=== PATIENT | male | born 1985 | race Caucasian/White ===

== ENCOUNTER 2018-02-10 21:58 | Emergency (ER) | payer OTHER ==
[~2018-02-10] VITALS: Ht 177.8 cm; Wt 83.9 kg
[~2018-02-10 21:58] MED LIST: ALBU90OI INH; AMOCLA500 PO; AMOX500 PO; AZIT250 PO; BENZ100A PO; Bactrim Ds Tab1 EACH PO; CEPH500 PO; CLON1 PO; CYCL10 PO; Ciloxan5 ML LEFTEYE; DOXY100 PO; ERYT.5TO LEFTEYE; FLUO.05TC TOP; GENT.3OPO TOP; HYDACE10B PO; HYDACE5 PO; HYDACE5325 PO; HYDHCL10 PO; IBUP200; IBUP800 PO; KETO10 PO; LIDO2TG30 TOP; METO50 PO; MUPI2TO TOP; NAPR550 PO; OXYACE5T PO; OXYACE7.5T PO; PENVK500 PO; PRED20 PO; PROM25 PO; RXCLIN PO; RXHYDACE PO; RXNAPNA550 PO; RXOXYACE PO; RXTRAM50 PO; SULTRIDS PO; SULTRISS PO; TOPI25; TOPI25 PO; TOPI50 PO; TRAM50 PO; ZOLM2.5; ZOLM2.5 PO
[2018-02-10] MEDS ORDERED: CLON1 (22:47)
[2018-02-10] MEDS ORDERED: METH5 (22:47)
[2018-02-10] MEDS ORDERED: RANI150 (22:48)
[2018-02-11] MEDS ORDERED: Vistaril25 MG PO (00:03)
== END 2018-02-11 00:10 | disposition home or self-care (01) ==
LOC: ER 21:58
DX: Z76.0 Encounter for issue of repeat prescription (principal); Z79.899 Other long term (current) drug therapy; F41.9 Anxiety disorder, unspecified; G43.909 Migraine, unspecified, not intractable, without status migrainosus; F17.200 Nicotine dependence, unspecified, uncomplicated; G47.00 Insomnia, unspecified

== ENCOUNTER → 2019-04-13 | Outpatient (CLI) | payer OTHER ==
[~2019-04-13] MED LIST changes: +CLON1; +DIVA250ER PO; +Keflex500 MG PO; +METH5; +RANI150; +Vistaril25 MG PO
== END | disposition home or self-care (01) ==
LOC: LAB SHORT 14:15 → LAB SRC 14:15
DX: L02.91 Cutaneous abscess, unspecified (principal); F19.10 Other psychoactive substance abuse, uncomplicated
CPT/HCPCS: 87070; 87077; 87147; 87186; 87205

== ENCOUNTER 2021-12-11 20:39 | Emergency (ER) | payer OTHER ==
[~2021-12-11] VITALS: Ht 177.8 cm; Wt 99.8 kg
[~2021-12-11 20:39] MED LIST changes: +NARCAN4 MG
[2021-12-11 22:22] LABS: BASOPHILS ABSOLUTE AUTO 0.05 K/mm3 (0.00-0.23); BASOPHILS PERCENT AUTO 1 % (0-2); EOSINOPHILS ABSOLUTE AUTO 0.31 K/mm3 (0.00-0.68); EOSINOPHILS PERCENT AUTO 4 % (0-6); Hematocrit 29.2 % (37.0-53.0); Hemoglobin 9.2 g/dL (13.5-17.5); IMMATURE GRAN ABSOLUTE AUTO 0.04 K/mm3 (0.00-0.10); IMMATURE GRAN PERCENT AUTO 1 % (0-1); LYMPHOCYTES ABSOLUTE AUTO 2.14 K/mm3 (0.84-5.20); LYMPHOCYTES PERCENT AUTO 28 % (21-46); MONOCYTES ABSOLUTE AUTO 0.83 K/mm3 (0.16-1.47); MONOCYTES PERCENT AUTO 11 % (4-13); Mean Corpuscular HGB 25.6 pg (26.0-34.0); Mean Corpuscular HGB Conc 31.5 g/dL (31.5-36.5); Mean Corpuscular Volume 81 fL (80-100); Mean Platelet Volume 10.7 fL (9.1-12.4); NEUTROPHILS ABSOLUTE AUTO 4.28 K/mm3 (1.96-9.15); NEUTROPHILS PERCENT AUTO 56 % (41-73); Platelet Count 348 K/mm3 (150-400); RDW Coefficient Variation 15.6 % (11.7-14.2); RDW Standard Deviation 46.7 fL (35.1-46.3); Red Blood Cell Count 3.59 M/mm3 (4.30-5.90); White Blood Cell Count 7.65 K/mm3 (4.00-11.30)
[2021-12-11 22:47] LABS: Alanine Aminotransfer (ALT/SGP 22 U/L (12-78); Albumin, Blood 2.3 g/dL (3.4-5.0); Albumin/Globulin Ratio 0.5 (0.8-1.8); Alk Phos 89 U/L (50-136); Anion Gap 1 mmol/L (6-16); Aspartate Aminotrans (AST/SGOT 9 U/L (12-37); Bilirubin, Total 0.2 mg/dL (0.1-1.0); Blood Urea Nitrogen 21 mg/dL (8-24); Bun/Creatinine Ratio 22.7 (12.0-20.0); CO2, Blood 31 mmol/L (21-32); Calcium, Blood 8.9 mg/dL (8.5-10.1); Chloride, Blood 105 mmol/L (98-108); Creatinine, Blood 0.93 mg/dL (0.60-1.20); Globulin, Blood 4.5 g/dL (2.2-4.0); Glomerular Filtration Rate >60 (60-); Glucose, Blood 102 mg/dL (70-99); Potassium, Blood 4.9 mmol/L (3.5-5.5); Sodium, Blood 137 mmol/L (136-145); Total Protein, Blood 6.8 g/dL (6.4-8.2)
[2021-12-11] MEDS ORDERED: CLIN300 PO (23:16)
== END 2021-12-11 23:41 | disposition home or self-care (01) ==
LOC: ER 20:39
PROVIDERS: Emergency Medicine
DX: L03.116 Cellulitis of left lower limb (principal); R60.0 Localized edema; Z79.899 Other long term (current) drug therapy; I10 Essential (primary) hypertension; F17.210 Nicotine dependence, cigarettes, uncomplicated
CPT/HCPCS: 36415; 71045; 80053; 84484; 85025; 85651; 86140; 93005; 93010; 93971; 96374; 99284-25

== ENCOUNTER 2023-01-20 00:41 | Inpatient (IN) | payer OTHER ==
[~2023-01-20] VITALS: Ht 177.8 cm; Wt 85.8 kg
[~2023-01-20 00:41] MED LIST changes: +CLIN300 PO
[2023-01-20] MEDS ORDERED: METH40 PO (01:08)
[2023-01-20 02:17] LABS: BASOPHILS ABSOLUTE AUTO 0.03 K/mm3 (0.00-0.23); BASOPHILS PERCENT AUTO 0 % (0-2); EOSINOPHILS PERCENT AUTO 0 % (0-6); Hematocrit 35.3 % (37.0-53.0); Hemoglobin 11.2 g/dL (13.5-17.5); IMMATURE GRAN ABSOLUTE AUTO 0.08 K/mm3 (0.00-0.10); IMMATURE GRAN PERCENT AUTO 1 % (0-1); LYMPHOCYTES ABSOLUTE AUTO 0.82 K/mm3 (0.84-5.20); LYMPHOCYTES PERCENT AUTO 5 % (21-46); MONOCYTES ABSOLUTE AUTO 0.23 K/mm3 (0.16-1.47); MONOCYTES PERCENT AUTO 1 % (4-13); Mean Corpuscular HGB 25.5 pg (26.0-34.0); Mean Corpuscular HGB Conc 31.7 g/dL (31.5-36.5); Mean Corpuscular Volume 80 fL (80-100); Mean Platelet Volume 10.8 fL (9.1-12.4); NEUTROPHILS ABSOLUTE AUTO 15.62 K/mm3 (1.96-9.15); NEUTROPHILS PERCENT AUTO 93 % (41-73); Platelet Count 265 K/mm3 (150-400); RDW Coefficient Variation 14.8 % (11.7-14.2); RDW Standard Deviation 43.3 fL (35.1-46.3); White Blood Cell Count 16.78 K/mm3 (4.00-11.30)
[2023-01-20 02:36] LABS: Albumin, Blood 3.3 g/dL (3.4-5.0); Albumin/Globulin Ratio 0.8 (0.8-1.8); Bilirubin, Total 0.6 mg/dL (0.1-1.0); Bun/Creatinine Ratio 16.5 (12.0-20.0); C-REACTIVE PROTEIN, EXT RANGE 13.8 mg/dL (0.000-0.300); Calcium, Blood 8.6 mg/dL (8.5-10.1); Creatinine, Blood 1.15 mg/dL (0.60-1.20); Globulin, Blood 4.3 g/dL (2.2-4.0); Potassium, Blood 3.6 mmol/L (3.5-5.5); Total Protein, Blood 7.6 g/dL (6.4-8.2)
--- NOTE | 2023-01-20 10:45 | NUR ---
CALLED [facility] [place] [phone] TORRES. VERIFIED PER RN KEVIN THAT PT DOES INDEED TAKE MATHADONE [address] UPDATE [address] TORRES
--- NOTE | 2023-01-20 18:38 | NUR ---
PT PLEASTNT TODAY. CELLULITIS HAS BEEN MARKED AND PIC TAKEN PLACED IN CHART. NO C/O PAIN. NO CHANGE IN COLOR WARMTH, OR SIZE OF CELLULITIS ON LEG NOTED TODAY. TAKES 135 MG METHADONE. I VERIFIED THIS DOSE WITH MOTHER THAT TAKES HIM TO CLINIC DAILY. ALSO VERIFIED WITH THE CLINIC. PT SOME SLEEPY, BUT YAZAN WELL TODAY. VSS. NO OTHER CONCERNS NOTED. BED IN LOW POSITION, CALL LITE IN REACH, CALLS APPROP
[2023-01-20 19:07] LABS: U Amphetamine Screen DETECTED; U Methamphetamine Screen DETECTED
[2023-01-20 19:08] LABS: U Barbituate Screen Not Detected; U Benzodiazapine Screen Not Detected; U Buprenorphine Screen Not Detected; U Cannabinoids Screen Not Detected; U Cocaine Screen Not Detected; U Methadone Screen DETECTED; U Opiates Screen DETECTED; U Oxycodone Screen Not Detected; U Phencyclidine Screen Not Detected; U Propoxyphene Screen Not Detected
--- NOTE | 2023-01-21 03:13 | NUR ---
SHIFT SUMMARY NOC PT A/O X 4. PLEASANT AND COOPERATIVE WITH CARE. PT HAS CELLULITIS IN RLE WHICH IS MARKED WITH BORDERS. SITE IS RED AND WARM TO TOUCH. PT TAKES 135MG OF METHADONE DAILY. PT HAS SLEPT ENTIRETY OF SHIFT. PT HAS LR INFUSING @ 100 MLS/HR. VSS. PT IS CURRENTLY RESTING WITH BED IN LOWEST POSITION, AND CALL LIGHT WITHIN REACH.
[2023-01-21 08:15] LABS: Bun/Creatinine Ratio 11.6 (12.0-20.0); Calcium, Blood 8.2 mg/dL (8.5-10.1); Creatinine, Blood 0.86 mg/dL (0.60-1.20); Magnesium, Blood 1.8 mg/dL (1.6-2.4); Potassium, Blood 3.8 mmol/L (3.5-5.5)
[2023-01-21 08:41] LABS: BASOPHILS ABSOLUTE AUTO 0.03 K/mm3 (0.00-0.23); BASOPHILS PERCENT AUTO 0 % (0-2); EOSINOPHILS ABSOLUTE AUTO 0.16 K/mm3 (0.00-0.68); EOSINOPHILS PERCENT AUTO 2 % (0-6); Hematocrit 31.5 % (37.0-53.0); Hemoglobin 10.1 g/dL (13.5-17.5); IMMATURE GRAN ABSOLUTE AUTO 0.05 K/mm3 (0.00-0.10); IMMATURE GRAN PERCENT AUTO 1 % (0-1); LYMPHOCYTES PERCENT AUTO 12 % (21-46); MONOCYTES ABSOLUTE AUTO 0.45 K/mm3 (0.16-1.47); MONOCYTES PERCENT AUTO 6 % (4-13); Mean Corpuscular HGB 25.9 pg (26.0-34.0); Mean Corpuscular HGB Conc 32.1 g/dL (31.5-36.5); Mean Corpuscular Volume 81 fL (80-100); Mean Platelet Volume 10.7 fL (9.1-12.4); NEUTROPHILS ABSOLUTE AUTO 6.23 K/mm3 (1.96-9.15); NEUTROPHILS PERCENT AUTO 80 % (41-73); Platelet Count 185 K/mm3 (150-400); RDW Coefficient Variation 15.1 % (11.7-14.2); RDW Standard Deviation 43.9 fL (35.1-46.3); White Blood Cell Count 7.82 K/mm3 (4.00-11.30)
[2023-01-21 21:23] LABS: Vancomycin, Trough 9.2 ug/mL (5.0-10.0)
--- NOTE | 2023-01-22 04:22 | NUR ---
HIFT SUMMARY NOC PT A/O X 4. PLEASANT AND COOPERATIVE WITH CARE. PT RLE IS STILL RED AND WARM TO TOUCH. VANCOMYCIN IS STILL BEING ADMINISTERED FOR INFECTION. PT SLEPT FOR MOST OF SHIFT WITH NO C/O OF PAIN. PT IS CURRENTLY RESTING WITH BED IN LOWEST POSITION, AND CALL LIGHT WITHIN REACH.
[2023-01-22 05:41] LABS: BASOPHILS ABSOLUTE AUTO 0.03 K/mm3 (0.00-0.23); BASOPHILS PERCENT AUTO 0 % (0-2); EOSINOPHILS ABSOLUTE AUTO 0.34 K/mm3 (0.00-0.68); EOSINOPHILS PERCENT AUTO 5 % (0-6); Hemoglobin 9.2 g/dL (13.5-17.5); IMMATURE GRAN ABSOLUTE AUTO 0.02 K/mm3 (0.00-0.10); IMMATURE GRAN PERCENT AUTO 0 % (0-1); LYMPHOCYTES PERCENT AUTO 22 % (21-46); MONOCYTES ABSOLUTE AUTO 0.58 K/mm3 (0.16-1.47); MONOCYTES PERCENT AUTO 9 % (4-13); Mean Corpuscular HGB 25.5 pg (26.0-34.0); Mean Corpuscular HGB Conc 31.7 g/dL (31.5-36.5); Mean Corpuscular Volume 80 fL (80-100); Mean Platelet Volume 11.2 fL (9.1-12.4); NEUTROPHILS ABSOLUTE AUTO 4.22 K/mm3 (1.96-9.15); NEUTROPHILS PERCENT AUTO 63 % (41-73); Platelet Count 223 K/mm3 (150-400); RDW Coefficient Variation 15.1 % (11.7-14.2); RDW Standard Deviation 44.9 fL (35.1-46.3); Red Blood Cell Count 3.61 M/mm3 (4.30-5.90); White Blood Cell Count 6.69 K/mm3 (4.00-11.30)
[2023-01-22 05:59] LABS: Albumin, Blood 2.3 g/dL (3.4-5.0); Anion Gap 3 mmol/L (6-16); Blood Urea Nitrogen 10 mg/dL (8-24); Bun/Creatinine Ratio 12.2 (12.0-20.0); CO2, Blood 28 mmol/L (21-32); Calcium, Blood 8.5 mg/dL (8.5-10.1); Chloride, Blood 106 mmol/L (98-108); Creatinine, Blood 0.82 mg/dL (0.60-1.20); Glomerular Filtration Rate 116 (60-); Glucose, Blood 101 mg/dL (70-99); Phosphorus, Blood 2.3 mg/dL (2.5-4.9); Potassium, Blood 3.9 mmol/L (3.5-5.5); Sodium, Blood 137 mmol/L (136-145)
[2023-01-22 08:07] LABS: Percent Saturation 5.5 % (20.0-50.0)
--- NOTE | 2023-01-22 16:43 | NUR ---
SHIFT SUMMARY: PT A&O X4, PLEASANT AND COOPERATIVE. PT ABLE TO AMBULATE INDEPENDANTLY IN THE ROOM. PT HAD MILD PAIN TO THE RIGHT LEG WITH AMBULATION, PT MEDICATED WITH SCHEDULED METHADONE 135MG. PT MOTHER AT BEDSIDE FOR SUPPORT AND COMFORT. DR. TORRES SPOKE WITH THE PT AND PLANS FOR DISCHARGE IF STABLE THE FOLLWOIN DAY. PT HAD CONCERNS FOR [facility] DOSE FOR WEDNESDAY R/T TO [facility] BEING CLOSED. MATCHER OFFBEARER CONTACTED AFTER HOURS CLINIC AND PT CAN RESUME MEDICATION DOSE Wednesday. PT IN BED WITH CALL LIGHT WITHIN REACH.
[2023-01-23 05:31] LABS: Hematocrit 30.6 % (37.0-53.0); Hemoglobin 9.7 g/dL (13.5-17.5)
[2023-01-23 06:30] LABS: Albumin, Blood 2.3 g/dL (3.4-5.0); Anion Gap 3 mmol/L (6-16); Blood Urea Nitrogen 11 mg/dL (8-24); Bun/Creatinine Ratio 15.3 (12.0-20.0); CO2, Blood 28 mmol/L (21-32); Calcium, Blood 8.9 mg/dL (8.5-10.1); Chloride, Blood 104 mmol/L (98-108); Creatinine, Blood 0.72 mg/dL (0.60-1.20); Glomerular Filtration Rate 121 (60-); Glucose, Blood 107 mg/dL (70-99); Phosphorus, Blood 3.9 mg/dL (2.5-4.9); Potassium, Blood 4.1 mmol/L (3.5-5.5); Sodium, Blood 135 mmol/L (136-145)
[2023-01-23] MEDS ORDERED: DOCU100 PO (12:14)
[2023-01-23] MEDS ORDERED: Acetaminophen650 M1 PO (12:14)
[2023-01-23] MEDS ORDERED: PROBIOTIC1 EA13 PO (12:16)
[2023-01-23] MEDS ORDERED: FERSU300 PO (12:16)
[2023-01-23] MEDS ORDERED: SULTRIDS PO (12:18)
--- NOTE | 2023-01-23 13:05 | NUR ---
NOTES/DISCHARGE SUMMARY: PATIENT A&OX4. CALM, PLEASANT AND COOPERATIVE c CARE. USES CALL LIGHT APPROPRIATELY AND ABLE TO MAKE NEEDS KNOWN. PATIENT DENIES CP/PRESSURE, N/V, SOB AND NO FEVER. R LEG CELLULITIS SEEMS TO BE IMPROVING BASED ON OUTLINE KINGA ON ADMISSION. PATIENT RECEIVED SCHEDULED MEDS PER EMAR. VITAL SIGNS REVIEWED. PATIENT AMBULATES IN ROOM INDEPENDENTLY WITHOUT USING ANY ASSISTIVE DEVICE. PATIENT CONTINENCE OF URINE AND STOOL. IV TO DENISE VU'D. PATIENT DISCHARGE HOME. DISCHARGE INSTRUCTION PACKET GIVEN TO PATIENT. EDUCATE PATIENT REGARDING ADMITTING DX, S/S, TX, AND NEW PRESCRIBED MEDICATIONS. PATIENT STATED UNDERSTANDING AND NO FURTHER QUESTIONS. RX WAS FAXED TO PATIENT PREFERRED PHARMACY ([facility] ALL PATIENT PERSONAL BELONGINGS WERE SENT HOME c THE PATIENT. PATIENT WAS OFFERED TO BE TRANSPORTED VIA WHEELCHAIR BY STAFF MEMBER BUT PATIENT DECLINED AND PREFERRED TO WALK c MOM. PATIENT LEFT THE ROOM AT AROUND 1240.
== END 2023-01-23 12:39 | disposition home or self-care (01) | DRG 872 ==
LOC: ER 00:41 → MEDS 00:42
PROVIDERS: Family Medicine; Student in an Organized Health Care Education/Training Program; ADMIT Student in an Organized Health Care Education/Training Program
DX: A41.9 Sepsis, unspecified organism (principal); L03.115 Cellulitis of right lower limb; E87.1 Hypo-osmolality and hyponatremia; F11.20 Opioid dependence, uncomplicated; E83.39 Other disorders of phosphorus metabolism; E88.09 Other disorders of plasma-protein metabolism, not elsewhere classified; I10 Essential (primary) hypertension; D64.9 Anemia, unspecified; F10.10 Alcohol abuse, uncomplicated; F17.210 Nicotine dependence, cigarettes, uncomplicated; Z86.19 Personal history of other infectious and parasitic diseases; Z86.14 Personal history of Methicillin resistant Staphylococcus aureus infection; Z28.21 Immunization not carried out because of patient refusal
CPT/HCPCS: 36415; 80048; 80053; 80069; 80202; 82607; 82728; 82746; 82947; 83540; 83550; 83735; 85014; 85018; 85025; 86140; 87040; 96361; 96366; 96374; 96375; 99284-25; A9270; G0378; J0690; J1650; J2916; J3370; J7050; J7120

== ENCOUNTER 2023-10-20 15:24 | Emergency (ER) | payer OTHER ==
[~2023-10-20] VITALS: Ht 177.8 cm; Wt 99.3 kg
[~2023-10-20 15:24] MED LIST changes: +Acetaminophen650 M1 PO; +DOCU100 PO; +FERSU300 PO; +METH40 PO; +PROBIOTIC1 EA13 PO
[2023-10-20 15:32] VITALS: BP 143/84
[2023-10-20 16:20] LABS: Hematocrit 32.4 % (37.0-53.0); Hemoglobin 10.5 g/dL (13.5-17.5); Mean Corpuscular HGB 25.4 pg (26.0-34.0); Mean Corpuscular HGB Conc 32.4 g/dL (31.5-36.5); Mean Corpuscular Volume 78 fL (80-100); Mean Platelet Volume 10.5 fL (9.1-12.4); Platelet Count 466 K/mm3 (150-400); RDW Coefficient Variation 14.1 % (11.7-14.2); RDW Standard Deviation 40.1 fL (35.1-46.3); Red Blood Cell Count 4.14 M/mm3 (4.30-5.90); White Blood Cell Count 5.19 K/mm3 (4.00-11.30)
[2023-10-20 16:53] LABS: Albumin, Blood 3.3 g/dL (3.4-5.0); Albumin/Globulin Ratio 0.8 (0.8-1.8); Bilirubin, Total 0.3 mg/dL (0.1-1.0); Bun/Creatinine Ratio 17.9 (12.0-20.0); Creatinine, Blood 1.06 mg/dL (0.60-1.20); Globulin, Blood 4.2 g/dL (2.2-4.0); Potassium, Blood 3.9 mmol/L (3.5-5.5); Total Protein, Blood 7.5 g/dL (6.4-8.2)
[2023-10-20 17:02] LABS: BASOPHILS PERCENT MAN 2 % (0-2); EOSINOPHILS ABSOLUTE MAN 0.46 K/mm3 (0.00-0.68); EOSINOPHILS PERCENT MAN 9 % (0-6); LYMPHOCYTES ABSOLUTE MAN 2.17 K/mm3 (0.84-5.20); LYMPHOCYTES PERCENT MAN 42 % (21-46); MONOCYTES ABSOLUTE MAN 0.36 K/mm3 (0.16-1.47); MONOCYTES PERCENT MAN 7 % (4-13); NEUTROPHILS ABSOLUTE MAN 2.07 K/mm3 (1.96-9.15); SEG NEUTROPHILS PERCENT MAN 40 % (41-73); TOTAL CELLS COUNTED 100
[2023-10-20] MEDS ORDERED: CEPH500 PO (17:12)
== END 2023-10-20 17:23 | disposition home or self-care (01) ==
LOC: ER 15:24
PROVIDERS: Student in an Organized Health Care Education/Training Program
DX: L03.115 Cellulitis of right lower limb (principal); Z79.899 Other long term (current) drug therapy; I10 Essential (primary) hypertension; F17.210 Nicotine dependence, cigarettes, uncomplicated
CPT/HCPCS: 80053; 85025; 99283

== ENCOUNTER → 2024-05-03 | Outpatient (CLI) | payer OTHER ==
[2024-05-03 10:14] LABS: BASOPHILS ABSOLUTE AUTO 0.05 K/mm3 (0.00-0.23); BASOPHILS PERCENT AUTO 1 % (0-2); EOSINOPHILS ABSOLUTE AUTO 0.55 K/mm3 (0.00-0.68); EOSINOPHILS PERCENT AUTO 8 % (0-6); Hematocrit 32.3 % (37.0-53.0); Hemoglobin 10.6 g/dL (13.5-17.5); IMMATURE GRAN ABSOLUTE AUTO 0.01 K/mm3 (0.00-0.10); IMMATURE GRAN PERCENT AUTO 0 % (0-1); LYMPHOCYTES ABSOLUTE AUTO 1.19 K/mm3 (0.84-5.20); LYMPHOCYTES PERCENT AUTO 17 % (21-46); MONOCYTES ABSOLUTE AUTO 0.63 K/mm3 (0.16-1.47); MONOCYTES PERCENT AUTO 9 % (4-13); Mean Corpuscular HGB 28.3 pg (26.0-34.0); Mean Corpuscular HGB Conc 32.8 g/dL (31.5-36.5); Mean Corpuscular Volume 86 fL (80-100); Mean Platelet Volume 11.1 fL (9.1-12.4); NEUTROPHILS ABSOLUTE AUTO 4.54 K/mm3 (1.96-9.15); NEUTROPHILS PERCENT AUTO 65 % (41-73); Platelet Count 227 K/mm3 (150-400); RDW Coefficient Variation 13.7 % (11.7-14.2); RDW Standard Deviation 42.6 fL (35.1-46.3); Red Blood Cell Count 3.75 M/mm3 (4.30-5.90); White Blood Cell Count 6.97 K/mm3 (4.00-11.30)
[2024-05-03 10:20] LABS: Bun/Creatinine Ratio 14.7 (12.0-20.0); Calcium, Blood 8.8 mg/dL (8.5-10.1); Creatinine, Blood 1.16 mg/dL (0.60-1.20); Potassium, Blood 3.4 mmol/L (3.5-5.5)
== END ==
LOC: LAB SHORT 10:11 → LAB 10:11
PROVIDERS: Physician Assistant Medical
DX: L03.116 Cellulitis of left lower limb (principal); L03.115 Cellulitis of right lower limb
CPT/HCPCS: 80048; 85025

== ENCOUNTER 2024-07-05 09:22 | Observation (INO) | payer OTHER ==
[~2024-07-05] VITALS: Ht 162.6 cm; Wt 87.4 kg
[2024-07-05] MEDS ORDERED: CeFAZolin Sodium 2,000 MG in NS 100 ML IV ONE (10:55)
[2024-07-05 10:56] LABS: BASOPHILS ABSOLUTE AUTO 0.07 K/mm3 (0.00-0.23); BASOPHILS PERCENT AUTO 0 % (0-2); EOSINOPHILS ABSOLUTE AUTO 0.02 K/mm3 (0.00-0.68); EOSINOPHILS PERCENT AUTO 0 % (0-6); Hematocrit 34.3 % (37.0-53.0); Hemoglobin 11.4 g/dL (13.5-17.5); IMMATURE GRAN ABSOLUTE AUTO 0.07 K/mm3 (0.00-0.10); IMMATURE GRAN PERCENT AUTO 0 % (0-1); LYMPHOCYTES ABSOLUTE AUTO 0.75 K/mm3 (0.84-5.20); LYMPHOCYTES PERCENT AUTO 4 % (21-46); MONOCYTES ABSOLUTE AUTO 0.36 K/mm3 (0.16-1.47); MONOCYTES PERCENT AUTO 2 % (4-13); Mean Corpuscular HGB 28.3 pg (26.0-34.0); Mean Corpuscular HGB Conc 33.2 g/dL (31.5-36.5); Mean Corpuscular Volume 85 fL (80-100); Mean Platelet Volume 10.1 fL (9.1-12.4); NEUTROPHILS ABSOLUTE AUTO 15.86 K/mm3 (1.96-9.15); NEUTROPHILS PERCENT AUTO 93 % (41-73); Platelet Count 212 K/mm3 (150-400); RDW Coefficient Variation 12.7 % (11.7-14.2); RDW Standard Deviation 39.1 fL (35.1-46.3); Red Blood Cell Count 4.03 M/mm3 (4.30-5.90); White Blood Cell Count 17.13 K/mm3 (4.00-11.30)
[2024-07-05 11:23] LABS: Albumin, Blood 3.2 g/dL (3.4-5.0); Albumin/Globulin Ratio 0.9 (0.8-1.8); Bilirubin, Total 0.6 mg/dL (0.1-1.0); Bun/Creatinine Ratio 14.4 (12.0-20.0); Calcium, Blood 9.2 mg/dL (8.5-10.1); Creatinine, Blood 1.04 mg/dL (0.60-1.20); Globulin, Blood 3.5 g/dL (2.2-4.0); Potassium, Blood 3.4 mmol/L (3.5-5.5); Total Protein, Blood 6.7 g/dL (6.4-8.2)
[2024-07-05] MEDS ORDERED: Atropine/Scopalam/Hyoscam/PB 5 ML UDC PO ONE (12:50)
[2024-07-05] MEDS ORDERED: Lidocaine 2% Viscous Soln 15 ML UDC PO ONE (12:50)
[2024-07-05] MEDS ORDERED: Mag Hydrox/AL Hydrox/Simeth 30 ML UDC PO ONE (12:50)
[2024-07-05] MEDS ORDERED: Ondansetron 4 MG TAB PO PRN (13:55)
[2024-07-05] MEDS ORDERED: Acetaminophen 325 MG TABLET PO PRN (13:55)
[2024-07-05] MEDS ORDERED: Methadone HCL 10 MG TAB PO ONE (14:15)
[2024-07-05] MEDS ORDERED: NS 1,000 ML IV SCH (15:00)
[2024-07-05 15:46] VITALS: BP 114/74
--- NOTE | 2024-07-05 16:39 | NUR ---
SHIFT SUMMARY: PT ADMITTED 1545, AOX4 SLEEPY BUT ARROUSABLE. BUCK PAIN AND JUST WANTED A NICOTINE PATCH, GIVEN AND NS HANGING 125ML/HR. PT EATING HALF A SANDWICH AND MUFFIN W MILK. ORIENTED TO ROOM, BED IN LOWEST POSITION, CALL LIGHT IN REACH. CONTINUING CARE.
[2024-07-05] MEDS ORDERED: Nicotine 21 MG PATCH TOP SCH (17:00)
--- NOTE | 2024-07-05 17:58 | NUR ---
NURSE NOTE: PT SLEEPY NOT ABLE TO STAY AWAKE TO ANSWER QUESTIONS. MOTHER AT BEDSIDE TO FILL IN PATIENT HX.
[2024-07-05] MEDS ORDERED: CeFAZolin Sodium 2,000 MG in NS 100 ML IV SCH (20:00)
[2024-07-05] MEDS ORDERED: Docusate Sodium 100 MG Cap PO SCH (21:00)
[2024-07-05] MEDS ORDERED: Sennosides 8.6 MG Tab PO SCH (21:00)
[2024-07-05] MEDS ORDERED: Ferrous Sulfate 325 MG Tab PO SCH (21:00)
[2024-07-05 21:13] VITALS: BP 110/60
[2024-07-06 02:49] VITALS: BP 116/64
--- NOTE | 2024-07-06 05:33 | NUR ---
SHIFT SUMMARY VINNY SLEP FIRST HALF OF MY SHIFT WAS AWAKE QUIETLY WATCHING TV THE SECOND. GAVE HIM PRN DOSE OF TYLENOL FOR LEG PAIN.REMAINS IN CONTACT ISOLATION D/TR HX OF MRSA IN 2019
[2024-07-06 07:35] VITALS: BP 106/68
[2024-07-06] MEDS ORDERED: FLUoxetine HCL 20 MG CAP PO SCH (09:00)
[2024-07-06] MEDS ORDERED: Nicotine 21 MG PATCH TOP SCH (09:00)
[2024-07-06] MEDS ORDERED: Enoxaparin 40 MG/0.4 ML SYR SC SCH (09:00)
[2024-07-06] MEDS ORDERED: Methadone HCL 10 MG TAB PO SCH (11:00)
[2024-07-06 14:15] LABS: BASOPHILS ABSOLUTE AUTO 0.03 K/mm3 (0.00-0.23); BASOPHILS PERCENT AUTO 0 % (0-2); EOSINOPHILS PERCENT AUTO 3 % (0-6); Hematocrit 36.7 % (37.0-53.0); Hemoglobin 11.7 g/dL (13.5-17.5); IMMATURE GRAN ABSOLUTE AUTO 0.03 K/mm3 (0.00-0.10); IMMATURE GRAN PERCENT AUTO 0 % (0-1); LYMPHOCYTES ABSOLUTE AUTO 1.18 K/mm3 (0.84-5.20); LYMPHOCYTES PERCENT AUTO 13 % (21-46); MONOCYTES ABSOLUTE AUTO 0.67 K/mm3 (0.16-1.47); MONOCYTES PERCENT AUTO 8 % (4-13); Mean Corpuscular HGB 28.3 pg (26.0-34.0); Mean Corpuscular HGB Conc 31.9 g/dL (31.5-36.5); Mean Corpuscular Volume 89 fL (80-100); Mean Platelet Volume 10.3 fL (9.1-12.4); NEUTROPHILS ABSOLUTE AUTO 6.58 K/mm3 (1.96-9.15); NEUTROPHILS PERCENT AUTO 75 % (41-73); Platelet Count 199 K/mm3 (150-400); RDW Coefficient Variation 13.2 % (11.7-14.2); RDW Standard Deviation 42.5 fL (35.1-46.3); Red Blood Cell Count 4.14 M/mm3 (4.30-5.90); White Blood Cell Count 8.79 K/mm3 (4.00-11.30)
[2024-07-06 14:40] LABS: Albumin, Blood 2.8 g/dL (3.4-5.0); Albumin/Globulin Ratio 0.7 (0.8-1.8); Bilirubin, Total 0.1 mg/dL (0.1-1.0); Bun/Creatinine Ratio 11.1 (12.0-20.0); Calcium, Blood 8.8 mg/dL (8.5-10.1); Creatinine, Blood 0.81 mg/dL (0.60-1.20); Globulin, Blood 3.9 g/dL (2.2-4.0); Potassium, Blood 3.8 mmol/L (3.5-5.5); Total Protein, Blood 6.7 g/dL (6.4-8.2)
[2024-07-06 15:18] VITALS: BP 114/78
--- NOTE | 2024-07-06 18:12 | NUR ---
END OF SHIFT SUMMARY: A&Ox4. PLEASANT AND COOPERATIVE WITH CARE. CALLS APPROPRIATELY AND IS ABLE TO ADVOCATE NEEDS EFFECTIVELY. AMBULATES INDEPENDENTLY WITHIN THE ROOM. SHOWERED TODAY. AREA OF CELLULITIS OUTLINED WITH MARKER. NO COMPLAINTS OF PAIN OR DISCOMFORT. RECOMMENDS STAYING THROUGH THE NIGHT FOR CONTINUED IV ABT. PT AND MOTHER ARE CONCERNED BECAUSE HE RECEIVES TREATMENT THROUGH THE [facility] AND IF HE IS NOT ON CLINIC SITE BEFORE 1030AM HE WILL NOT RECEIVE HIS TWO DOSES THROUGH THE WEEKEND AND ADMITS TO LIKELY RELAPSING. PROVIDED EDUCATION REGARDING [facility] TREATMENT ALTERNATIVES AND DID LET THEM KNOW PEOPLE HAVE COME TO OUR ER TO BE TREATED WHEN MISSED [facility]ONE DOSES. PATIENT AND HIS MOTHER WOULD LIKE TO KNOW IF THEY ARE NOT DISCHARGED BY 1030AM IF PATIENT COULD RECEIVE Rx FOR TWO DOSES OF METHADONE 70MG TO FILL SO HE WILL NOT MISS HIS DOSES THROUGHOUT THE WEEKEND. ASSURED HIM AND HIS MOTHER THAT MESSAGE WILL BE DELIVERED TO PROVIDERS. BED IN LOWEST POSITION. CALL LIGHT WITHIN REACH. ALL NEEDS MET. REPORT TO FAITH RN.
[2024-07-06 19:50] VITALS: BP 120/82
[2024-07-07 03:04] VITALS: BP 123/87
--- NOTE | 2024-07-07 05:19 | NUR ---
SHIFT SUMMARY PATIENT LEFT ON AND OFF. PLEASANT TO WORK WITH. C/O HEARTBURN, SAID HE HAS NOT HAD THAT IN A LONG TIME. GIVEN WHOLE MILK WHICH HELPED. REMAINS IN CONTACT ISOLATION FOR HX OF MRSA. PRN TYLENOL GIVEN. ABLE TO WALK TO BR BY HIMSELF.
[2024-07-07 07:36] VITALS: BP 114/75
[2024-07-07] MEDS ORDERED: DOCU100 PO (08:22)
[2024-07-07] MEDS ORDERED: SULFAMETHOXAZO1 EAC1 PO (08:22)
[2024-07-07] MEDS ORDERED: FERSU300 PO (08:23)
[2024-07-07] MEDS ORDERED: Prozac40 MG PO (08:23)
--- NOTE | 2024-07-07 19:16 | NUR ---
DISCHARGE SUMMARY: A&Ox4. PLEASANT AND COOPERATIVE WITH CARE. CALLS APPROPRIATELY AND IS ABLE TO ADVOCATE NEEDS EFFECTIVELY. AMBULATES INDEPENDENTLY. SHOWERED TODAY. MEDS WHOLE WITH FLUIDS. LAST DOSE IV ABx ADMINISTERED. NO C/O PAIN OR DISCOMFORT TODAY. DOSED WITH [facility] AND DISCHARGED. THIS RN REMOVED IV AND PROVIDED WITH DISCHARGE PACKET AND ALL BELONGINGS. PATIENT LEFT FLOOR ACCOMPANIED BY MOTHER WITH PLANS TO GO DIRECTLY TO [facility] FOR WEEKEND DOSING. BED IN LOWEST POSITION. CALL LIGHT WITHIN REACH. ALL NEEDS MET. REPORT TO ONCOMING RN.
== END 2024-07-07 09:16 | disposition home or self-care (01) ==
LOC: ER 09:22 → MEDS 09:23
PROVIDERS: Physician Assistant; Student in an Organized Health Care Education/Training Program; ADMIT Internal Medicine
DX: L03.116 Cellulitis of left lower limb (principal); F19.10 Other psychoactive substance abuse, uncomplicated; F17.210 Nicotine dependence, cigarettes, uncomplicated; E87.6 Hypokalemia; D64.9 Anemia, unspecified; I10 Essential (primary) hypertension; Z79.899 Other long term (current) drug therapy; Z88.8 Allergy status to other drugs, medicaments and biological substances
CPT/HCPCS: 36415; 73701; 80053; 83605; 85025; 87040; 94762; 96361; 96365-59; 96366; 96372; 96376; 99284-25; A9270; G0378; J0690; J1650; J7030; Q9967

== ENCOUNTER 2024-07-28 11:36 | Inpatient (IN) | payer OTHER ==
[~2024-07-28] VITALS: Ht 177.8 cm; Wt 88.6 kg
[~2024-07-28 11:36] MED LIST changes: +Prozac40 MG PO; +SULFAMETHOXAZO1 EAC1 PO
[2024-07-28] MEDS ORDERED: Vancomycin HCL 2,000 MG in NS 500 ML IV ONE (15:50)
[2024-07-28 16:00] LABS: BASOPHILS ABSOLUTE AUTO 0.04 K/mm3 (0.00-0.23); BASOPHILS PERCENT AUTO 1 % (0-2); EOSINOPHILS ABSOLUTE AUTO 0.23 K/mm3 (0.00-0.68); EOSINOPHILS PERCENT AUTO 3 % (0-6); Hematocrit 39.4 % (37.0-53.0); Hemoglobin 12.7 g/dL (13.5-17.5); IMMATURE GRAN ABSOLUTE AUTO 0.04 K/mm3 (0.00-0.10); IMMATURE GRAN PERCENT AUTO 1 % (0-1); LYMPHOCYTES ABSOLUTE AUTO 1.67 K/mm3 (0.84-5.20); LYMPHOCYTES PERCENT AUTO 21 % (21-46); MONOCYTES PERCENT AUTO 7 % (4-13); Mean Corpuscular HGB Conc 32.2 g/dL (31.5-36.5); Mean Corpuscular Volume 84 fL (80-100); NEUTROPHILS ABSOLUTE AUTO 5.53 K/mm3 (1.96-9.15); NEUTROPHILS PERCENT AUTO 68 % (41-73); RDW Coefficient Variation 13.5 % (11.7-14.2); RDW Standard Deviation 41.8 fL (35.1-46.3); White Blood Cell Count 8.11 K/mm3 (4.00-11.30)
[2024-07-28 16:04] LABS: Albumin, Blood 3.1 g/dL (3.4-5.0); Albumin/Globulin Ratio 0.6 (0.8-1.8); Bilirubin, Total 0.4 mg/dL (0.1-1.0); Bun/Creatinine Ratio 13.3 (12.0-20.0); Creatinine, Blood 0.9 mg/dL (0.60-1.20); Globulin, Blood 4.8 g/dL (2.2-4.0); Potassium, Blood 4.1 mmol/L (3.5-5.5); Total Protein, Blood 7.9 g/dL (6.4-8.2)
[2024-07-28 16:50] LABS: Mean Platelet Volume 11.5 fL (9.1-12.4); Platelet Count 234 K/mm3 (150-400)
[2024-07-28] MEDS ORDERED: Acetaminophen 325 MG TABLET PO PRN (17:50)
[2024-07-28] MEDS ORDERED: FLU VACC TS2024-25(6MOS UP)/PF 45 MCG/0.5 ML SYRINGE IM ONE (17:55)
[2024-07-28] MEDS ORDERED: Lactated Ringer's 1,000 ML IV SCH (17:55)
[2024-07-28] MEDS ORDERED: Ondansetron HCl 2 MG / ML 2ML Vial IV PRN (17:55)
[2024-07-28] MEDS ORDERED: Ketorolac Tromethamine 15mg Vial IV PRN (18:05)
[2024-07-28] MEDS ORDERED: Cymbalta20 MG PO (18:24)
[2024-07-28] MEDS ORDERED: PROP10 PO (18:29)
[2024-07-28 20:00] VITALS: BP 128/78
[2024-07-28] MEDS ORDERED: Lactobacil 2-S.Thermo-Bifido 1 1 Cap PO SCH (21:00)
[2024-07-29] MEDS ORDERED: Vancomycin HCL 1,000 MG in NS 250 ML IV SCH
[2024-07-29] MEDS ORDERED: CeFAZolin Sodium 2,000 MG in NS 100 ML IV SCH
[2024-07-29 03:49] VITALS: BP 125/76
--- NOTE | 2024-07-29 06:47 | NUR ---
SHIFT SUMMARY PT NEWLY ADMITTED FROM ED. CELLULITIS LEFT LOWER EXTREMITY. PICTURES TAKEN AND IN PT FILE. PT REQUESTED TURKEY SANDWICH AND YOGURT. PT ABLE TO AMBULATE TO BATHROOM URINAL WITHOUT ASSISTANCE. PT WAS RECENTLY ADMITTED THREE WEEKS AGO FOR SAME DIAGNOSIS BUT DID NOT FINISH PRESCRIBED ANTIBIOTICS AND IS HERE TONIGHT. EDUCATED PT ON IMPORTANCE OF FINISHING THE ANTIBIOTICS. PT WAS RECEPTIVE AND ABLE TO CONVERSE AND MAKE NEEDS KNOWN. PT TOOK SHOWER FOR ABOUT 45 MINUTES. PT S DEMEANOR AND PRESENTATION WAS COMPLETELY DIFFERENT. PT APPEARED INCOHERENT AND DAZED. NURSE WAS TOLD BY UNIX DEVELOPER THAT HE APPEARED STARTLED WHEN CHECKING ON HIM, HIS IV WAS NOT TAPED TO HIS FOREARM. I APPLIED COBAN AFTER ASSESSING. IV WAS SECURE, NO DRAINAGE OR INFILTRATION VISUALIZED. REPORTED TO CHARGE AND WILL CONTINUE TO MONITOR. BED IN LOW POSITION, CALL LIGHT WITHIN REACH, RAILS TIMES 2.
[2024-07-29] MEDS ORDERED: NS 250 ML IV PRN (07:30)
[2024-07-29 07:31] VITALS: BP 127/84
[2024-07-29] MEDS ORDERED: DULoxetine HCL 20 MG Cap DR PO SCH (09:00)
[2024-07-29] MEDS ORDERED: Ferrous Sulfate 325 MG Tab PO SCH (09:00)
[2024-07-29] MEDS ORDERED: Enoxaparin 40 MG/0.4 ML SYR SC SCH (09:00)
[2024-07-29] MEDS ORDERED: Docusate Sodium 100 MG Cap PO SCH (09:00)
[2024-07-29] MEDS ORDERED: Methadone HCL 10 MG TAB PO SCH (09:00)
[2024-07-29 15:05] LABS: Hematocrit 39.4 % (37.0-53.0); Hemoglobin 12.6 g/dL (13.5-17.5); Mean Corpuscular HGB 27.2 pg (26.0-34.0); Mean Corpuscular Volume 85 fL (80-100); Mean Platelet Volume 10.8 fL (9.1-12.4); Platelet Count 250 K/mm3 (150-400); RDW Coefficient Variation 13.6 % (11.7-14.2); RDW Standard Deviation 42.3 fL (35.1-46.3); Red Blood Cell Count 4.63 M/mm3 (4.30-5.90)
[2024-07-29 15:28] LABS: Vancomycin, Trough 17.5 ug/mL (5.0-10.0)
[2024-07-29 15:43] VITALS: BP 117/77
[2024-07-29] MEDS ORDERED: Vancomycin HCL 750 MG in NS 250 ML IV SCH (16:11)
--- NOTE | 2024-07-29 17:12 | NUR ---
SHIFT SUMMARY MR BETANCOURT IS TOLERATING IVF AND IV ABX WELL. UP INDEPENDENTLY TO THE BATHROOM WITH STEADY GAIT. HE SAID HIS LEG FEELS ABOUT THE SAME, SAME BURNING SENSATION. ON AM ASSESSMENT REDNESS WAS WITHIN PENMARK BOUNDARIES. HE DOES STATE THAT HE HAS SOME DELAY IN URINATION FLOW SOMETIMES. BED LOW, CALL LIGHT IN REACH.
[2024-07-29 19:11] VITALS: BP 130/86
[2024-07-30 02:45] VITALS: BP 158/92
--- NOTE | 2024-07-30 05:42 | NUR ---
SHIFT SUMMARY CELLULITIS LEFT LOWER EXTREMITY. PICTURES TAKEN AND IN PT FILE. PT ABLE TO AMBULATE TO BATHROOM URINAL WITHOUT ASSISTANCE. PT WAS RECEPTIVE TO CARE, AND ABLE TO CONVERSE AND MAKE NEEDS KNOWN. PT TOOK SHOWER. AFTER PT CAME OUT OF SHOWER APPEARED TO BE IN AN ALTERED MENTAL STATE. IV WOULD NOT FLUSH AFTER SEVERAL ATTEMPTS. CHARGE NURSE ABLE TO GET FLUSH. IV WAS OCCLUDED A SECOND TIME, USED VEIN FINDER TO LOCATE ALTERNATE SITE BUT TRIED AGAIN TO FLUSH AND WAS SUCCESSFUL. IV WAS OCCLUDED A THIRD TIME AFTER PT PAUSED IV PUMP TO USE THE BATHROOM. IV ABLE TO FLUSH AFTER SEVERAL ATTEMPTS. PATIENT APPEARED TO SLEEP ON AND OFF THROUGH THE NIGHT. BED IN LOW POSITION, CALL LIGHT WITHIN REACH, RAILS TIMES 2
[2024-07-30 07:11] VITALS: BP 137/83
[2024-07-30] MEDS ORDERED: Nicotine Polacrilex 2 MG Gum PO PRN (13:20)
[2024-07-30] MEDS ORDERED: Misc. Tablet PO PRN (16:00)
[2024-07-30 16:02] VITALS: BP 133/93
[2024-07-30] MEDS ORDERED: NICOTINE POLACRILEX 4 MG PO PRN (16:10)
--- NOTE | 2024-07-30 16:40 | NUR ---
SHIFT SUMMARY MR BETANCOURT HAS LEFT LEG REDNESS THAT HAS NOT EXTENDED PAST PEN KINGA OUTLINE ON LEG. THERE ARE MORE WRINKLES IN THE SKIN AND THE SWELLING LOOKS DECREASED TODAY. IT IS STILL BURNING AND TENDER WHEN HE PUTS PRESSURE ON THE LEG TO WALK, BUT HAS STEADY STRONG INDEPENDENT GAIT. POWERGLIDE PLACED THIS AM FOR IV ABX. MR BETANCOURT PREVIOUSLY DENIED HAVING ANY NICOTENE PRODUCTS BUT TODAY WAS VAPING IN HIS ROOM. HE WAS REMINDED OF THE HOSPITAL NO NICOTENE POLICY AND HE WILLINGLY LET ME LOCK HIS VAPE IN HIS MEDICINE DRAWER. HE DENIES TAKING ANY OTHER SUBSTANCES DURING HIS ADMISSION. YUKO SMITHZENREINA ORDERED. VISITORS AT BEDSIDE. BED LOW, CALL LIGHT IN REACH.
[2024-07-30] MEDS ORDERED: NICOTINE POLACRILEX 4 MG XX PRN (17:40)
[2024-07-30 19:43] VITALS: BP 128/81
--- NOTE | 2024-07-31 03:49 | NUR ---
SUMMARY: PT A/OX4, INDEPENDENT IN ROOM AND CALLS APPROPRIATELY TO SPECIFY NEEDS. L.LEG CELLULITIS PERSISTS BUT EDEMA AND REDNESS IS CONFINED TO DEMARCATED AREA AND SWELLING SEEMS TO BE IMPROVING. PRN OXYCODONE PROVIDED FOR TOLERABLE RELIEF OF ASSOCIATED PAIN. IV ABX RECEIVED PER EMAR. NO ACUTE CHANGES, VSS/AFEBRILE. WCTM AND REPORT TO DAY RN.
[2024-07-31 05:00] VITALS: BP 122/68
[2024-07-31 07:35] VITALS: BP 122/72
[2024-07-31] MEDS ORDERED: CEPH500 PO (11:22)
[2024-07-31] MEDS ORDERED: VISBIOME 112.51 EACH PO (11:22)
--- NOTE | 2024-07-31 13:34 | NUR ---
DISCHARGE PT DISCHARGED AT 1300. PT AND MOTHER EDUCATED ON NEW MEDS AND FOLLOW UP APPOINTMENTS NEEDED. BOTH STATE THEY UNDERSTAND. LEG WRAPPED UP FOR DC AND PT AMBULATED OUT OF HOSPITAL AFTER REFUSING WHEELCHAIR RIDE.
== END 2024-07-31 13:00 | disposition home or self-care (01) | DRG 603 ==
LOC: ER 11:36 → MEDS 11:37
PROVIDERS: Emergency Medicine; Nurse Practitioner Acute Care; Physician Assistant; ADMIT Internal Medicine
DX: L03.116 Cellulitis of left lower limb (principal); D50.9 Iron deficiency anemia, unspecified; F15.10 Other stimulant abuse, uncomplicated; F11.10 Opioid abuse, uncomplicated; F17.210 Nicotine dependence, cigarettes, uncomplicated; I10 Essential (primary) hypertension; B19.20 Unspecified viral hepatitis C without hepatic coma; F10.10 Alcohol abuse, uncomplicated; Z86.14 Personal history of Methicillin resistant Staphylococcus aureus infection; Z79.899 Other long term (current) drug therapy
CPT/HCPCS: 36415; 80053; 80202; 83605; 85025; 85027; 94760; 96365; 96366; 96367; 96372; 96376; 99284-25; A9270; G0378; J0690; J1650; J3370; J7040; J7050; J7120

== ENCOUNTER 2024-08-21 12:03 | Emergency (ER) | payer OTHER ==
[~2024-08-21] VITALS: Ht 172.7 cm; Wt 68.0 kg
[~2024-08-21 12:03] MED LIST changes: +Cymbalta20 MG PO; +PROP10 PO; +VISBIOME 112.51 EACH PO
[2024-08-21 12:30] VITALS: BP 123/85
[2024-08-21] MEDS ORDERED: Methadone HCL 10 MG TAB PO ONE (12:35)
[2024-08-22] MEDS ORDERED: CYMBALTA20 M2 PO ×2 (04:10)
[2024-08-22] MEDS ORDERED: PROZAC40 MG PO (04:10)
== END 2024-08-21 13:12 | disposition home or self-care (01) ==
LOC: ER 12:03
DX: F11.20 Opioid dependence, uncomplicated (principal); L03.115 Cellulitis of right lower limb; F17.210 Nicotine dependence, cigarettes, uncomplicated
CPT/HCPCS: 99281; A9270

== ENCOUNTER 2024-08-21 20:41 | Inpatient (IN) | payer OTHER ==
[~2024-08-21] VITALS: Ht 177.8 cm; Wt 88.9 kg
[2024-08-22] MEDS ORDERED: Clindamycin 900mg in D5W 50ML 50 ML IV ONE (01:05)
[2024-08-22] MEDS ORDERED: Piperacillin/Tazobactam Sod 4.5 GM in NS 100 ML IV ONE (01:05)
[2024-08-22] MEDS ORDERED: Vancomycin HCL 2,000 MG in NS 520 ML IV ONE (01:05)
[2024-08-22 01:43] LABS: BASOPHILS ABSOLUTE AUTO 0.05 K/mm3 (0.00-0.23); BASOPHILS PERCENT AUTO 0 % (0-2); EOSINOPHILS ABSOLUTE AUTO 0.01 K/mm3 (0.00-0.68); EOSINOPHILS PERCENT AUTO 0 % (0-6); Hematocrit 33.5 % (37.0-53.0); IMMATURE GRAN ABSOLUTE AUTO 0.16 K/mm3 (0.00-0.10); IMMATURE GRAN PERCENT AUTO 1 % (0-1); LYMPHOCYTES PERCENT AUTO 5 % (21-46); MONOCYTES ABSOLUTE AUTO 0.34 K/mm3 (0.16-1.47); MONOCYTES PERCENT AUTO 2 % (4-13); Mean Corpuscular HGB 27.4 pg (26.0-34.0); Mean Corpuscular HGB Conc 32.8 g/dL (31.5-36.5); Mean Corpuscular Volume 84 fL (80-100); Mean Platelet Volume 10.5 fL (9.1-12.4); NEUTROPHILS ABSOLUTE AUTO 16.66 K/mm3 (1.96-9.15); NEUTROPHILS PERCENT AUTO 92 % (41-73); Platelet Count 219 K/mm3 (150-400); RDW Coefficient Variation 13.4 % (11.7-14.2); RDW Standard Deviation 41.4 fL (35.1-46.3); Red Blood Cell Count 4.01 M/mm3 (4.30-5.90); White Blood Cell Count 18.12 K/mm3 (4.00-11.30)
[2024-08-22 02:14] LABS: Alanine Aminotransfer (ALT/SGP 19 U/L (12-78); Albumin, Blood 2.8 g/dL (3.4-5.0); Albumin/Globulin Ratio 0.6 (0.8-1.8); Alk Phos 65 U/L (50-136); Anion Gap 7 mmol/L (3-11); Aspartate Aminotrans (AST/SGOT 14 U/L (12-37); Bilirubin, Total 0.5 mg/dL (0.1-1.0); Blood Urea Nitrogen 14 mg/dL (8-24); Bun/Creatinine Ratio 13.6 (12.0-20.0); CO2, Blood 28 mmol/L (21-32); Calcium, Blood 8.9 mg/dL (8.5-10.1); Chloride, Blood 100 mmol/L (98-108); Creatinine, Blood 1.03 mg/dL (0.60-1.20); Globulin, Blood 4.5 g/dL (2.2-4.0); Glomerular Filtration Rate 95 (60-); Glucose, Blood 109 mg/dL (70-99); Potassium, Blood 3.9 mmol/L (3.5-5.5); Sodium, Blood 131 mmol/L (136-145); Total Protein, Blood 7.3 g/dL (6.4-8.2)
[2024-08-22 02:29] LABS: C-Reactive Protein, High Sens. >190.000 mg/dL (0.000-3.000)
[2024-08-22] MEDS ORDERED: CYMBALTA20 M2 PO ×2 (04:10)
[2024-08-22] MEDS ORDERED: PROZAC40 MG PO (04:10)
[2024-08-22] MEDS ORDERED: Magnesium Hydroxide Conc 10 ML UDC PO PRN (05:05)
[2024-08-22] MEDS ORDERED: Ondansetron HCl 2 MG / ML 2ML Vial IV PRN (05:05)
[2024-08-22] MEDS ORDERED: FLU VACC TS2024-25(6MOS UP)/PF 45 MCG/0.5 ML SYRINGE IM ONE (05:05)
[2024-08-22] MEDS ORDERED: NS 1,000 ML IV SCH (05:05)
[2024-08-22] MEDS ORDERED: DULoxetine HCL 20 MG Cap DR PO SCH (06:00)
[2024-08-22] MEDS ORDERED: Nicotine Polacrilex 2 MG Gum PO PRN (06:10)
[2024-08-22] MEDS ORDERED: Piperacillin/Tazobactam Sod 3.375 GM in NS 100 ML IV SCH (08:00)
[2024-08-22 08:55] LABS: BASOPHILS ABSOLUTE AUTO 0.05 K/mm3 (0.00-0.23); BASOPHILS PERCENT AUTO 0 % (0-2); EOSINOPHILS ABSOLUTE AUTO 0.07 K/mm3 (0.00-0.68); EOSINOPHILS PERCENT AUTO 1 % (0-6); Hematocrit 30.7 % (37.0-53.0); IMMATURE GRAN ABSOLUTE AUTO 0.14 K/mm3 (0.00-0.10); IMMATURE GRAN PERCENT AUTO 1 % (0-1); LYMPHOCYTES ABSOLUTE AUTO 1.01 K/mm3 (0.84-5.20); LYMPHOCYTES PERCENT AUTO 7 % (21-46); MONOCYTES ABSOLUTE AUTO 0.66 K/mm3 (0.16-1.47); MONOCYTES PERCENT AUTO 4 % (4-13); Mean Corpuscular HGB 27.2 pg (26.0-34.0); Mean Corpuscular HGB Conc 32.6 g/dL (31.5-36.5); Mean Corpuscular Volume 83 fL (80-100); Mean Platelet Volume 10.4 fL (9.1-12.4); NEUTROPHILS ABSOLUTE AUTO 13.39 K/mm3 (1.96-9.15); NEUTROPHILS PERCENT AUTO 87 % (41-73); Platelet Count 199 K/mm3 (150-400); RDW Coefficient Variation 13.7 % (11.7-14.2); RDW Standard Deviation 42.1 fL (35.1-46.3); Red Blood Cell Count 3.68 M/mm3 (4.30-5.90); White Blood Cell Count 15.32 K/mm3 (4.00-11.30)
[2024-08-22 08:59] LABS: Albumin, Blood 2.3 g/dL (3.4-5.0); Albumin/Globulin Ratio 0.6 (0.8-1.8); Bilirubin, Total 0.5 mg/dL (0.1-1.0); Bun/Creatinine Ratio 10.7 (12.0-20.0); Calcium, Blood 8.2 mg/dL (8.5-10.1); Creatinine, Blood 1.03 mg/dL (0.60-1.20); Globulin, Blood 4.1 g/dL (2.2-4.0); Potassium, Blood 4.1 mmol/L (3.5-5.5); Total Protein, Blood 6.4 g/dL (6.4-8.2)
[2024-08-22] MEDS ORDERED: Methadone HCL 10 MG TAB PO SCH (09:00)
[2024-08-22] MEDS ORDERED: Lactobacil 2-S.Thermo-Bifido 1 1 Cap PO SCH (09:00)
[2024-08-22 11:48] VITALS: BP 101/66
[2024-08-22] MEDS ORDERED: NS 250 ML IV PRN (12:50)
[2024-08-22 15:27] VITALS: BP 123/71
--- NOTE | 2024-08-22 15:59 | NUR ---
DR. POLANCO CALLED FOR UPDATE ON ORTHO CONSULT. MESSAGE RELAYED THAT ORTHO DR. PICKENS IS IN SURGERY TODAY
[2024-08-22] MEDS ORDERED: Vancomycin HCL 1,500 MG in NS 250 ML IV SCH (16:00)
[2024-08-22] MEDS ORDERED: Enoxaparin 40 MG/0.4 ML SYR SC SCH (16:00)
[2024-08-22 19:12] VITALS: BP 119/70
--- NOTE | 2024-08-22 19:19 | NUR ---
SHIFT SUMMARY NEW ADMIT AT 1130. A/04. IND. PHOTOS TAKEN OF CELLULITIS TO R LEG. REDNESS IS OUTLINED AND DATED, HAS NOT SPREAD. IV ANTIBIOTICS STARTED. PT EDUCATED AND AGREEABLE TO PLAN OF CARE.
[2024-08-22] MEDS ORDERED: Acetaminophen 325 MG TABLET PO PRN (21:45)
[2024-08-23] MEDS ORDERED: Heparin Sodium,Porcine 5,000 UNIT/0.5 ML SDV SC SCH
[2024-08-23 03:48] VITALS: BP 116/51
[2024-08-23 06:05] LABS: BASOPHILS ABSOLUTE AUTO 0.04 K/mm3 (0.00-0.23); BASOPHILS PERCENT AUTO 0 % (0-2); EOSINOPHILS ABSOLUTE AUTO 0.41 K/mm3 (0.00-0.68); EOSINOPHILS PERCENT AUTO 4 % (0-6); Hematocrit 28.3 % (37.0-53.0); Hemoglobin 9.4 g/dL (13.5-17.5); IMMATURE GRAN ABSOLUTE AUTO 0.05 K/mm3 (0.00-0.10); IMMATURE GRAN PERCENT AUTO 0 % (0-1); LYMPHOCYTES ABSOLUTE AUTO 1.23 K/mm3 (0.84-5.20); LYMPHOCYTES PERCENT AUTO 11 % (21-46); MONOCYTES ABSOLUTE AUTO 0.83 K/mm3 (0.16-1.47); MONOCYTES PERCENT AUTO 7 % (4-13); Mean Corpuscular HGB 27.6 pg (26.0-34.0); Mean Corpuscular HGB Conc 33.2 g/dL (31.5-36.5); Mean Corpuscular Volume 83 fL (80-100); Mean Platelet Volume 10.8 fL (9.1-12.4); NEUTROPHILS ABSOLUTE AUTO 8.95 K/mm3 (1.96-9.15); NEUTROPHILS PERCENT AUTO 78 % (41-73); Platelet Count 212 K/mm3 (150-400); RDW Coefficient Variation 13.9 % (11.7-14.2); RDW Standard Deviation 41.9 fL (35.1-46.3); Red Blood Cell Count 3.41 M/mm3 (4.30-5.90); White Blood Cell Count 11.51 K/mm3 (4.00-11.30)
[2024-08-23 06:35] LABS: Albumin, Blood 2.2 g/dL (3.4-5.0); Albumin/Globulin Ratio 0.6 (0.8-1.8); Bilirubin, Total 0.4 mg/dL (0.1-1.0); Bun/Creatinine Ratio 12.3 (12.0-20.0); Calcium, Blood 8.5 mg/dL (8.5-10.1); Creatinine, Blood 0.89 mg/dL (0.60-1.20); Potassium, Blood 3.9 mmol/L (3.5-5.5); Total Protein, Blood 6.2 g/dL (6.4-8.2)
[2024-08-23 07:18] VITALS: BP 104/62
--- NOTE | 2024-08-23 07:28 | NUR ---
SHIFT SUMMARY PT IS A&OX4, PLEASANT AND COOPERATIVE WITH CARES. VSS ON RA. T-MAX 100.2F, 650 MG PO TYLENOL GIVEN. PT C/O DISCOMFORT TO HIS RLE, BUT NOT REQUESTING PAIN MEDICATION. TOLERATING A REGULAR DIET, NPO AFTER MN. PT TOOK A SHOWER THIS SHIFT. RLE CELLULITIS OUTLINED AND DATED. UP INDEPENDENTLY AD ADAMA IN ROOM/BR. VOIDING ADEQUATE AMOUNTS OF TEA COLORED, MALODOROUS URINE IN URINAL. NO BM THIS SHIFT. BED IN LOWEST POSITION, CALL LIGHT WITHIN REACH. CONTACT PRECAUTIONS MAINTAINED FOR HX OF MRSA.
[2024-08-23] MEDS ORDERED: Ferrous Sulfate 325 MG Tab PO SCH (09:00)
--- NOTE | 2024-08-23 11:54 | NUR ---
FOLLOWED UP WITH ORTHO DR. PICKENS ON CONSULT THAT WAS CALLED IN TO ANSWERING SERVICE ON 08/22. DR. PICKENS STATED HE WAS UNAWARE OF CONSULT AND WOULD BE BY TODAY.
[2024-08-23 15:18] VITALS: BP 97/63
[2024-08-23 17:39] LABS: Vancomycin, Trough 12.4 ug/mL (5.0-10.0)
--- NOTE | 2024-08-23 19:11 | NUR ---
SHIFT SUMMARY DR. PICKENS ROUNDED AND NO INTERVENTION NEEDED AT THIS TIME. CONTINUING IV ANTIBIOTICS. SERVICE SUPERINTENDENT HAD TROUBLE DRAWING BLOOD FOR VANC TROUGH SO VANCO WAS LATE. PAIN IS MANAGED AT THIS TIME, ONLY AXACERBATED WITH WALKING. REDNESS IS RECEDING FROM ORIGINAL OUTLINES.
[2024-08-23 19:32] VITALS: BP 112/64
[2024-08-24 04:35] VITALS: BP 108/68
--- NOTE | 2024-08-24 04:45 | NUR ---
SHIFT SUMMARY PT ALERT ORIENTED ABLE TO VERBALIZE NEEDS. GETS UP AD ADAMA INDEPENDENTLY IN ROOM. REMAINS ON METHADONE QDAY. NO OTHER C/O PAIN RT LEG REMAINS RED SWOLLEN AND WARM TO TOUCH. REMAINS ON VANCO AND ZOSYN. REMAINS ON CONTACY ISOLATION R/T MRSA. VSS AT THIS TIME ON RA SATTING AT 100%. WAS ABLE TO SLEEP MOST OF THE NIGHT. RESTING IN BED AT THIS TIME.
[2024-08-24 04:55] LABS: BASOPHILS ABSOLUTE AUTO 0.03 K/mm3 (0.00-0.23); BASOPHILS PERCENT AUTO 0 % (0-2); EOSINOPHILS ABSOLUTE AUTO 0.56 K/mm3 (0.00-0.68); EOSINOPHILS PERCENT AUTO 7 % (0-6); Hemoglobin 9.1 g/dL (13.5-17.5); IMMATURE GRAN ABSOLUTE AUTO 0.02 K/mm3 (0.00-0.10); IMMATURE GRAN PERCENT AUTO 0 % (0-1); LYMPHOCYTES ABSOLUTE AUTO 1.58 K/mm3 (0.84-5.20); LYMPHOCYTES PERCENT AUTO 20 % (21-46); MONOCYTES ABSOLUTE AUTO 0.71 K/mm3 (0.16-1.47); MONOCYTES PERCENT AUTO 9 % (4-13); Mean Corpuscular HGB 27.1 pg (26.0-34.0); Mean Corpuscular HGB Conc 32.5 g/dL (31.5-36.5); Mean Corpuscular Volume 83 fL (80-100); Mean Platelet Volume 10.6 fL (9.1-12.4); NEUTROPHILS ABSOLUTE AUTO 5.01 K/mm3 (1.96-9.15); NEUTROPHILS PERCENT AUTO 63 % (41-73); Platelet Count 228 K/mm3 (150-400); RDW Coefficient Variation 14.2 % (11.7-14.2); RDW Standard Deviation 43.7 fL (35.1-46.3); Red Blood Cell Count 3.36 M/mm3 (4.30-5.90); White Blood Cell Count 7.91 K/mm3 (4.00-11.30)
[2024-08-24 05:09] LABS: Albumin, Blood 2.1 g/dL (3.4-5.0); Albumin/Globulin Ratio 0.5 (0.8-1.8); Bilirubin, Total 0.4 mg/dL (0.1-1.0); Bun/Creatinine Ratio 13.2 (12.0-20.0); Calcium, Blood 8.8 mg/dL (8.5-10.1); Creatinine, Blood 0.76 mg/dL (0.60-1.20); Globulin, Blood 4.3 g/dL (2.2-4.0); Potassium, Blood 4.1 mmol/L (3.5-5.5); Total Protein, Blood 6.4 g/dL (6.4-8.2)
[2024-08-24 07:17] VITALS: BP 103/60
[2024-08-24] MEDS ORDERED: Enoxaparin 40 MG/0.4 ML SYR SC SCH (09:00)
[2024-08-24] MEDS ORDERED: CefTRIAXone Sodium 1,000 MG in NS 100 ML IV SCH (11:00)
[2024-08-24] MEDS ORDERED: CeFAZolin Sodium 2,000 MG in NS 100 ML IV SCH (12:00)
[2024-08-24 14:40] VITALS: BP 106/64
[2024-08-24 20:24] VITALS: BP 103/67
[2024-08-25 03:13] VITALS: BP 118/77
--- NOTE | 2024-08-25 03:57 | NUR ---
SHIFT SUMMARY PT ALERT ORIENTED VERBALIZES NEEDS APPROPRIATELY. AMBULATES AD ADAMA IN ROOM TO THE BATHROOM. RT LEG CELLULITIS IS LOOKING ALOT BETTER AND IS DECREASING IN SIZE AND REDNESS. REMAINS ON CONTACT ISOLATION R/T MRSA. VSS ON RA SATTING AT 97%. REMAINS ON METHADONE Q DAY R/T HX OF METH USE. REMAINS ON ANCEF AND VANCO. RESTING IN BED AT THIS TIME.
[2024-08-25 07:45] VITALS: BP 116/67
--- NOTE | 2024-08-25 14:31 | NUR ---
"Spiritual Care | Nurse Request Pt. is awake in bed and welcomes my visit. Pt. displays evidence of being guarded at first but is respectful and pleasant. Facilitated a life review and considered matters of family and substance abuse. Pt. verbalized that he remembered having anxiety as a child and that it was alchohol then drugs that rahel him a measure of comfort. Listen with empathy and a calm presence. Pt. at this point displays evidence of trust and enagement. Briefly consider matters of natalie. Theraputic listening only built this trust. Pt. verbalized that he was open to prayer. Prayed with Pt. Pt. verbalized gratitude fot the spiritual care visit."
[2024-08-25 15:17] VITALS: BP 106/62
[2024-08-25 15:53] LABS: Vancomycin, Trough 12.2 ug/mL (5.0-10.0)
--- NOTE | 2024-08-25 17:51 | NUR ---
SHIFT SUMARY- PT ALERT, ORIENTED AND INDEPENDENT IN THE ROOM. PT HAS HAD NO ACUTE CHANGE T/O THE SHIFT. PLAN IS FOR POSSIBLE CHANGE TO PO ABX TOMORROW WITH HOME DISCHARGE. PTCURRENTLY IN BED, CALL LIGHT IN REACH, CALLS APPROPRIATELY, NO S&S OF DISTRESS.
[2024-08-25 19:53] VITALS: BP 113/67
--- NOTE | 2024-08-26 03:18 | NUR ---
SHIFT SUMMARY PT ALERT ORIENTED ABLE TO VERBALIZE NEEDS GETS UP AD ADAMA IN ROOM AND AMBULATES TO THE BATHROOM. NO C/O PAIN THIS SHIFT. REMAINS ON ANCEF AND VANCO FOR CELLULITIS TO RLE. RT LEG REDNESS IS DECREASING BUT REMAINS SWOLLEN AND A COUPLE OF SPOTS THAT ARE WEEPING. VSS ON RA SATTING AT 98%. REMAINS ON CONTACT ISOLATION FOR MRSA. AWAITING CULTURES. HAS A HX OF IV DRUG USE AND GOES TO THE [facility]. HES RESTING IN BED AT THIS TIME
[2024-08-26 04:55] VITALS: BP 110/63
[2024-08-26 06:19] LABS: BASOPHILS ABSOLUTE AUTO 0.06 K/mm3 (0.00-0.23); BASOPHILS PERCENT AUTO 1 % (0-2); EOSINOPHILS ABSOLUTE AUTO 0.59 K/mm3 (0.00-0.68); EOSINOPHILS PERCENT AUTO 10 % (0-6); Hematocrit 32.5 % (37.0-53.0); Hemoglobin 10.4 g/dL (13.5-17.5); IMMATURE GRAN ABSOLUTE AUTO 0.03 K/mm3 (0.00-0.10); IMMATURE GRAN PERCENT AUTO 1 % (0-1); LYMPHOCYTES ABSOLUTE AUTO 1.79 K/mm3 (0.84-5.20); LYMPHOCYTES PERCENT AUTO 30 % (21-46); MONOCYTES ABSOLUTE AUTO 0.68 K/mm3 (0.16-1.47); MONOCYTES PERCENT AUTO 11 % (4-13); Mean Corpuscular Volume 84 fL (80-100); Mean Platelet Volume 10.6 fL (9.1-12.4); NEUTROPHILS ABSOLUTE AUTO 2.82 K/mm3 (1.96-9.15); NEUTROPHILS PERCENT AUTO 47 % (41-73); Platelet Count 297 K/mm3 (150-400); RDW Coefficient Variation 14.1 % (11.7-14.2); RDW Standard Deviation 43.5 fL (35.1-46.3); Red Blood Cell Count 3.85 M/mm3 (4.30-5.90); White Blood Cell Count 5.97 K/mm3 (4.00-11.30)
[2024-08-26 06:40] LABS: Bun/Creatinine Ratio 13.5 (12.0-20.0); Calcium, Blood 9.5 mg/dL (8.5-10.1); Creatinine, Blood 0.81 mg/dL (0.60-1.20); Potassium, Blood 4.3 mmol/L (3.5-5.5)
[2024-08-26 07:59] VITALS: BP 106/58
[2024-08-26] MEDS ORDERED: SULTRIDS PO (12:19)
--- NOTE | 2024-08-26 12:43 | NUR ---
DISCHARGE SUMMARY: A&Ox4. PLEASANT AND COOPERATIVE WITH CARE. CALLS APPROPRIATELY AND IS ABLE TO ADVOCATE NEEDS EFFECTIVELY. AMBULATES INDEPENDENTLY WITHIN THE ROOM AND AT BASELINE. NO C/O PAIN OR DISCOMFORT. PROVIDER AT BEDSIDE: PATIENT APPROPRIATE FOR DISCHARGE. MEDICATIONS FAXED TO [facility]. INSTRUCTED TO FOLLOW-UP WITH PCP. LEFT FLOOR AT WITH ALL BELONGINGS AND DISCHARGE PACKET, ESCORTED BY HIS MOTHER, ALSO PROVIDING TRANPSORATION. DID INFORM PATIENT HE WILL BE GOING TO ED FOR METH[facility]ONE DOSE TOMORROW. DOSE GIVEN TODAY.
== END 2024-08-26 12:30 | disposition home or self-care (01) | DRG 872 ==
LOC: ER 20:41 → MEDS 20:42 → ERHOLD 20:42 → MEDS 08-22 11:30
PROVIDERS: Emergency Medicine; Student in an Organized Health Care Education/Training Program; ADMIT Internal Medicine
DX: A41.9 Sepsis, unspecified organism (principal); F11.20 Opioid dependence, uncomplicated; L03.115 Cellulitis of right lower limb; E87.1 Hypo-osmolality and hyponatremia; F17.210 Nicotine dependence, cigarettes, uncomplicated; D50.9 Iron deficiency anemia, unspecified; B19.20 Unspecified viral hepatitis C without hepatic coma; Z86.14 Personal history of Methicillin resistant Staphylococcus aureus infection; F10.10 Alcohol abuse, uncomplicated; Z79.899 Other long term (current) drug therapy
CPT/HCPCS: 36415; 73700; 80048; 80053; 80202; 83605; 84484; 85025; 85651; 86141; 87040; 87070; 87075; 87205; 93005; 93010; 96365; 96366; 96367; 99285-25; A9270; J0690; J1644; J1650; J2543; J3370; J7040; J7050; Q9967

== ENCOUNTER 2024-11-16 11:05 | Emergency (ER) | payer OTHER ==
[~2024-11-16] VITALS: Ht 177.8 cm; Wt 96.6 kg
[~2024-11-16 11:05] MED LIST changes: +CYMBALTA20 M2 PO; +PROZAC40 MG PO
[2024-11-16 11:13] VITALS: BP 164/90
[2024-11-16] MEDS ORDERED: Mag Hydrox/AL Hydrox/Simeth 30 ML UDC PO ONE (11:40)
[2024-11-16] MEDS ORDERED: Lidocaine 2% Viscous Soln 15 ML UDC PO ONE (11:40)
== END 2024-11-16 12:29 | disposition home or self-care (01) ==
LOC: ER 11:05
DX: R13.10 Dysphagia, unspecified (principal); I10 Essential (primary) hypertension; F17.210 Nicotine dependence, cigarettes, uncomplicated; Z79.899 Other long term (current) drug therapy
CPT/HCPCS: 99282; A9270

== ENCOUNTER 2024-12-03 08:41 | Emergency (ER) | payer OTHER ==
[~2024-12-03] VITALS: Ht 177.8 cm; Wt 90.7 kg
[2024-12-03] MEDS ORDERED: Clindamycin 600mg in D5W 50 ML IV ONE (09:40)
[2024-12-03 10:16] LABS: BASOPHILS ABSOLUTE AUTO 0.09 K/mm3 (0.00-0.23); BASOPHILS PERCENT AUTO 1 % (0-2); EOSINOPHILS ABSOLUTE AUTO 0.37 K/mm3 (0.00-0.68); EOSINOPHILS PERCENT AUTO 3 % (0-6); Hematocrit 30.8 % (37.0-53.0); Hemoglobin 9.9 g/dL (13.5-17.5); IMMATURE GRAN PERCENT AUTO 1 % (0-1); LYMPHOCYTES ABSOLUTE AUTO 1.99 K/mm3 (0.84-5.20); LYMPHOCYTES PERCENT AUTO 16 % (21-46); MONOCYTES ABSOLUTE AUTO 1.05 K/mm3 (0.16-1.47); MONOCYTES PERCENT AUTO 8 % (4-13); Mean Corpuscular HGB 25.2 pg (26.0-34.0); Mean Corpuscular HGB Conc 32.1 g/dL (31.5-36.5); Mean Corpuscular Volume 78 fL (80-100); NEUTROPHILS ABSOLUTE AUTO 8.95 K/mm3 (1.96-9.15); NEUTROPHILS PERCENT AUTO 71 % (41-73); NRBC ABSOLUTE 0.02 K/mm3 (0.00-0.02); NRBC Auto 0.2 /100 WBC (0.0-0.2); RDW Coefficient Variation 13.8 % (11.7-14.2); RDW Standard Deviation 39.6 fL (35.1-46.3); Red Blood Cell Count 3.93 M/mm3 (4.30-5.90); White Blood Cell Count 12.55 K/mm3 (4.00-11.30)
[2024-12-03 10:21] LABS: Bun/Creatinine Ratio 26.1 (12.0-20.0); Calcium, Blood 8.6 mg/dL (8.5-10.1); Creatinine, Blood 0.88 mg/dL (0.60-1.20); Potassium, Blood 4.1 mmol/L (3.5-5.5)
[2024-12-03 10:28] LABS: Mean Platelet Volume 10.7 fL (9.1-12.4); Platelet Count 336 K/mm3 (150-400)
[2024-12-03] MEDS ORDERED: AMOCLA875 PO (12:28)
[2024-12-03] MEDS ORDERED: SULTRIDS PO (12:28)
[2024-12-03 12:30] VITALS: BP 120/70
== END 2024-12-03 13:01 | disposition home or self-care (01) ==
LOC: ER 08:41
PROVIDERS: Student in an Organized Health Care Education/Training Program
DX: L03.211 Cellulitis of face (principal); L02.01 Cutaneous abscess of face; D50.9 Iron deficiency anemia, unspecified; F11.11 Opioid abuse, in remission; F17.210 Nicotine dependence, cigarettes, uncomplicated; F10.11 Alcohol abuse, in remission; Z86.19 Personal history of other infectious and parasitic diseases; Z79.899 Other long term (current) drug therapy; Z86.14 Personal history of Methicillin resistant Staphylococcus aureus infection; Z87.898 Personal history of other specified conditions
CPT/HCPCS: 70487; 80048; 84145; 85025; 96365-59; 99284-25; Q9967

== ENCOUNTER 2025-01-08 05:39 | Emergency (ER) | payer OTHER ==
[~2025-01-08] VITALS: Ht 177.8 cm; Wt 90.7 kg
[~2025-01-08 05:39] MED LIST changes: +AMOCLA875 PO
[2025-01-08] MEDS ORDERED: Trimethoprim/Sulfamethoxazole DS Tab PO ONE (06:55)
[2025-01-08] MEDS ORDERED: SULTRIDS PO (06:57)
[2025-01-08 07:00] VITALS: BP 130/81
== END 2025-01-08 07:12 | disposition home or self-care (01) ==
LOC: ER 05:39
DX: L03.116 Cellulitis of left lower limb (principal); F17.210 Nicotine dependence, cigarettes, uncomplicated; I10 Essential (primary) hypertension; Z79.891 Long term (current) use of opiate analgesic
CPT/HCPCS: 99283; A9270

== ENCOUNTER 2025-01-10 09:52 | Emergency (ER) | payer OTHER ==
[~2025-01-10] VITALS: Ht 172.7 cm; Wt 90.7 kg
[2025-01-10 10:45] VITALS: BP 120/76
[2025-01-10] MEDS ORDERED: CEPH500 PO (10:54)
== END 2025-01-10 10:52 | disposition home or self-care (01) ==
LOC: ER 09:52
DX: L03.116 Cellulitis of left lower limb (principal); Z79.899 Other long term (current) drug therapy; D50.9 Iron deficiency anemia, unspecified; Z86.19 Personal history of other infectious and parasitic diseases; F11.11 Opioid abuse, in remission; F10.11 Alcohol abuse, in remission; F17.210 Nicotine dependence, cigarettes, uncomplicated
CPT/HCPCS: 99282

== ENCOUNTER 2025-05-22 19:40 | Inpatient (IN) | payer OTHER ==
[~2025-05-22] VITALS: Ht 177.8 cm; Wt 93.5 kg
[2025-05-22] MEDS ORDERED: Vancomycin (Pharmacy Consult) IV PRN (20:20)
[2025-05-22 21:05] LABS: BASOPHILS ABSOLUTE AUTO 0.06 K/mm3 (0.00-0.23); BASOPHILS PERCENT AUTO 0 % (0-2); EOSINOPHILS ABSOLUTE AUTO 0.22 K/mm3 (0.00-0.68); EOSINOPHILS PERCENT AUTO 1 % (0-6); Hematocrit 35.7 % (37.0-53.0); Hemoglobin 11.0 g/dL (13.5-17.5); IMMATURE GRAN ABSOLUTE AUTO 0.07 K/mm3 (0.00-0.10); IMMATURE GRAN PERCENT AUTO 1 % (0-1); LYMPHOCYTES ABSOLUTE AUTO 1.16 K/mm3 (0.84-5.20); LYMPHOCYTES PERCENT AUTO 8 % (21-46); MONOCYTES ABSOLUTE AUTO 0.74 K/mm3 (0.16-1.47); MONOCYTES PERCENT AUTO 5 % (4-13); Mean Corpuscular HGB Conc 30.8 g/dL (31.5-36.5); Mean Corpuscular Volume 74 fL (80-100); NEUTROPHILS ABSOLUTE AUTO 13.11 K/mm3 (1.96-9.15); NEUTROPHILS PERCENT AUTO 85 % (41-73); NRBC ABSOLUTE 0.00 K/mm3 (0.00-0.02); NRBC Auto 0.0 /100 WBC (0.0-0.2); Platelet Count 298 K/mm3 (150-400); RDW Coefficient Variation 15.6 % (11.7-14.2); RDW Standard Deviation 42.0 fL (35.1-46.3)
[2025-05-22] MEDS ORDERED: Furosemide 10 MG / ML 2ML Vial IV ONE (21:50)
[2025-05-22 22:04] LABS: Alanine Aminotransfer (ALT/SGP 24 U/L (12-78); Albumin, Blood 2.9 g/dL (3.4-5.0); Albumin/Globulin Ratio 0.6 (0.8-1.8); Anion Gap 7 mmol/L (3-11); Aspartate Aminotrans (AST/SGOT 11 U/L (12-37); Bilirubin, Total 0.6 mg/dL (0.1-1.0); Blood Urea Nitrogen 22 mg/dL (8-24); C-REACTIVE PROTEIN, EXT RANGE >19.000 mg/dL (0.000-0.300); CO2, Blood 28 mmol/L (21-32); Calcium, Blood 8.9 mg/dL (8.5-10.1); Chloride, Blood 100 mmol/L (98-108); Creatinine, Blood 1.29 mg/dL (0.60-1.20); Globulin, Blood 4.9 g/dL (2.2-4.0); Glucose, Blood 114 mg/dL (70-99); Potassium, Blood 3.7 mmol/L (3.5-5.5); Sodium, Blood 131 mmol/L (136-145); Total Protein, Blood 7.8 g/dL (6.4-8.2)
[2025-05-22] MEDS ORDERED: NS 1,000 ML IV SCH (23:45)
[2025-05-22] MEDS ORDERED: CefTRIAXone Sodium 1,000 MG in NS 100 ML IV SCH (23:50)
[2025-05-23] VITALS (7 sets, daily range): BP systolic 112–129; BP diastolic 65–78
[2025-05-23] MEDS ORDERED: Vancomycin (Pharmacy Consult) IV SCH (04:05)
[2025-05-23] MEDS ORDERED: Enoxaparin 40 MG/0.4 ML SYR SC SCH (09:00)
[2025-05-23 09:09] LABS: BASOPHILS ABSOLUTE AUTO 0.04 K/mm3 (0.00-0.23); BASOPHILS PERCENT AUTO 0 % (0-2); EOSINOPHILS ABSOLUTE AUTO 0.34 K/mm3 (0.00-0.68); EOSINOPHILS PERCENT AUTO 4 % (0-6); Hematocrit 31.1 % (37.0-53.0); Hemoglobin 9.5 g/dL (13.5-17.5); IMMATURE GRAN ABSOLUTE AUTO 0.02 K/mm3 (0.00-0.10); IMMATURE GRAN PERCENT AUTO 0 % (0-1); LYMPHOCYTES ABSOLUTE AUTO 1.21 K/mm3 (0.84-5.20); LYMPHOCYTES PERCENT AUTO 13 % (21-46); MONOCYTES ABSOLUTE AUTO 0.73 K/mm3 (0.16-1.47); MONOCYTES PERCENT AUTO 8 % (4-13); Mean Corpuscular HGB Conc 30.5 g/dL (31.5-36.5); Mean Corpuscular Volume 76 fL (80-100); NEUTROPHILS ABSOLUTE AUTO 7.32 K/mm3 (1.96-9.15); NEUTROPHILS PERCENT AUTO 76 % (41-73); NRBC ABSOLUTE 0.00 K/mm3 (0.00-0.02); NRBC Auto 0.0 /100 WBC (0.0-0.2); Platelet Count 240 K/mm3 (150-400); RDW Coefficient Variation 15.8 % (11.7-14.2); RDW Standard Deviation 43.1 fL (35.1-46.3)
[2025-05-23 09:23] LABS: Alanine Aminotransfer (ALT/SGP 19.0 U/L (12-78); Albumin, Blood 2.5 g/dL (3.4-5.0); Albumin/Globulin Ratio 0.6 (0.8-1.8); Anion Gap 4.0 mmol/L (3-11); Aspartate Aminotrans (AST/SGOT 10.0 U/L (12-37); Bilirubin, Total 0.3 mg/dL (0.1-1.0); Blood Urea Nitrogen 17.0 mg/dL (8-24); CO2, Blood 30.0 mmol/L (21-32); Calcium, Blood 8.2 mg/dL (8.5-10.1); Chloride, Blood 106.0 mmol/L (98-108); Creatinine, Blood 0.92 mg/dL (0.60-1.20); Globulin, Blood 4.3 g/dL (2.2-4.0); Glucose, Blood 100.0 mg/dL (70-99); Potassium, Blood 3.6 mmol/L (3.5-5.5); Sodium, Blood 136.0 mmol/L (136-145); Total Protein, Blood 6.8 g/dL (6.4-8.2)
[2025-05-23] MEDS ORDERED: CeFAZolin Sodium 2,000 MG in NS 100 ML IV SCH (16:00)
[2025-05-24 03:48] VITALS: BP 111/69
[2025-05-24 07:40] VITALS: BP 105/65
[2025-05-24] MEDS ORDERED: Lactobacil 2-S.Thermo-Bifido 1 1 Cap PO SCH (09:00)
[2025-05-24] MEDS ORDERED: Furosemide 10 MG / ML 2ML Vial IV SCH (09:00)
[2025-05-24 15:43] VITALS: BP 121/73
[2025-05-24] MEDS ORDERED: Trimethoprim/Sulfamethoxazole DS Tab PO SCH (15:45)
[2025-05-24] MEDS ORDERED: CEPHALEXIN125 MG/5 M PO (16:27)
[2025-05-24] MEDS ORDERED: FERSU300 PO (16:28)
[2025-05-24] MEDS ORDERED: FURO20 PO (16:30)
[2025-05-24] MEDS ORDERED: BACTRIM DS TAB1 EAC6 PO (16:31)
[2025-05-24] MEDS ORDERED: VISBIOME 112.51 EACH PO (16:32)
[2025-05-24 16:50] LABS: HIV 1,2 COMBO ANTIGEN/ANTIBODY Negative (Negative)
[2025-05-24 18:38] LABS: HEPATITIS C AB CIA INTERP High Pos (Negative); HEPATITIS C ANTIBODY CIA INDEX >11.00 IV
[2025-05-25 11:35] LABS: HCV QNT BY NAAT (IU/ML) Not Detected; HCV QNT BY NAAT (LOG IU/ML) Not Detected; HCV QNT BY NAAT INTERP Not Detected (Not Detected)
== END 2025-05-24 17:10 | disposition home or self-care (01) | DRG 603 ==
LOC: ER 19:40 → MEDS 19:41
PROVIDERS: Emergency Medicine; Student in an Organized Health Care Education/Training Program; ADMIT Student in an Organized Health Care Education/Training Program
DX: L03.116 Cellulitis of left lower limb (principal); N17.9 Acute kidney failure, unspecified; E87.1 Hypo-osmolality and hyponatremia; F11.20 Opioid dependence, uncomplicated; F17.210 Nicotine dependence, cigarettes, uncomplicated; L03.115 Cellulitis of right lower limb; D50.9 Iron deficiency anemia, unspecified; F15.10 Other stimulant abuse, uncomplicated; F41.9 Anxiety disorder, unspecified; Z86.14 Personal history of Methicillin resistant Staphylococcus aureus infection; Z79.899 Other long term (current) drug therapy
CPT/HCPCS: 36415; 80053; 83036; 83605; 83880; 85025; 86140; 86803; 87389; 87522; 96365; 96366; 99284-25; A9270; G0378; J0690; J0696; J1650; J1938; J3373; J7030; J7040; J7050